=== PATIENT | male | born 1930 | race Caucasian/White ===

== ENCOUNTER 2016-09-07 08:43 | Emergency (ER) | payer MEDICARE ==
[2016-09-07] MEDS ORDERED: Meclizine TAB* 12.5 MG PO ONE (09:29)
[2016-09-07] MEDS ORDERED: NS 0.9% 1000 ML* 1,000 ML IV SCH (09:30)
[2016-09-07 09:48] LABS: Hematocrit 42 % (42-52); Hemoglobin 14.2 g/dl (14.0-18.0); Mean Corpuscular HGB Conc 34 g/dl (31-36); Mean Corpuscular Hemoglobin 31 pg (27-31); Mean Corpuscular Volume 93 fL (80-94); Mean Platelet Volume 7 um3 (7.4-10.4); Red Blood Count 4.51 10^6/ul (4.0-5.4); Red Cell Distribution Width 13 % (10.5-15); White Blood Count 5.8 10^3/ul (3.5-10.8)
[2016-09-07 09:49] LABS: Add Diff/Slide Review? Slide Review Added; Comments Flag Yes
[2016-09-07 10:01] LABS: ALT 17 U/L (7-52); AST 20 U/L (13-39); Albumin 4.2 g/dL (3.2-5.2); Alkaline Phosphatase 72 U/L (34-104); Anion Gap 5 mmol/L (2-11); BUN/Creatinine Ratio 23.2 (8-20); Blood Urea Nitrogen 29 mg/dL (6-24); C Reactive Protein < 1.00 mg/L (< 5.00); CO2 Carbon Dioxide 26 mmol/L (22-32); Calcium 9.3 mg/dL (8.6-10.3); Chloride 100 mmol/L (101-111); Creatine Kinase 70 U/L (10-223); EGFR African American 70.8 (>60); Globulin 2.5 g/dL (2-4); Glucose 90 mg/dL (70-100); Potassium 4.4 mmol/L (3.5-5.0); Sodium 131 mmol/L (133-145); Total Protein 6.7 g/dL (6.4-8.9)
--- NOTE | 2016-09-07 10:09 | RAD ---
HISTORY: Dizziness, headache COMPARISONS: May 10, 2015 TECHNIQUE: Multiple contiguous axial CT scans were obtained of the head without intravenous contrast. FINDINGS: HEMORRHAGE/INFARCT: There is no hemorrhage or acute infarct. MASSES/SHIFT: There is no mass or shift. EXTRA-AXIAL SPACES: There are no extra-axial fluid collections. SULCI AND VENTRICLES: The sulci and ventricles are normal in size and position for the patient's stated age. CEREBRUM: There are no focal parenchymal abnormalities. BRAINSTEM: There are no focal parenchymal abnormalities. CEREBELLUM: There is a stable small focus of high attenuation within the right cerebellum, unchanged from previous examinations consistent with previous history of cavernoma. VESSELS: The vessels are grossly normal. PARANASAL SINUSES: The paranasal sinuses are clear. ORBITS: The orbits are unremarkable. BONES AND SOFT TISSUE: No bone or soft tissue abnormalities are noted. OTHER: None IMPRESSION: NO ACUTE INTRACRANIAL PATHOLOGY. STABLE RIGHT CEREBELLAR CAVERNOMA
--- NOTE | 2016-09-07 10:11 | RAD ---
INDICATION: Dizziness. COMPARISON: Comparison is made with prior chest x-ray study from July 15, 2016. TECHNIQUE: An AP view of the chest was obtained. FINDINGS: The heart is within normal limits in size. Mediastinal and hilar contours appear within normal limits. The lungs are clear. No pleural effusion is present. IMPRESSION: NO EVIDENCE FOR ACTIVE CARDIOPULMONARY DISEASE.
[2016-09-07 10:24] LABS: TSH (Thyroid Stimulating Horm) 1.11 mcIU/mL (0.34-5.60)
[2016-09-07 12:04] LABS: Urine Bilirubin Negative (Negative); Urine Glucose Negative (Negative); Urine Nitrite Negative (Negative)
--- NOTE | 2016-09-07 12:50 | ED ---
Zeyad Gonzalez Claudia, scribed for Lm Dove MD on 09/07/16 at 0925 . Dizziness - HPI Summary HPI Summary: 86 year old male presents to the ED with dizziness. Pt describes the dizziness as lightheaded and denies it as room spinning. Pt notes the room is stable he just feels unstable. Pt notes the Sx aggravated when he moves his head. Pt states similar Sx to "small cerebral leak" about 3 years ago in which he had no neurological deficits. Pt notes the dizziness has been going on intermittently for about a week but it worsened today and became more constant so he decided to come to ED. Pt denies any BORGES but notes that when he tries to walk he is off- balance and he walks daily. Pt also denies any arm/leg weakness. Pt denies CP, SOB, abd pain but does admit to nasal discharge for the past week. He notes thwt his PCP gave him Rx for meclizine and he has been taking it at night but did not take a dose last night. - History Of Current Complaint Chief Complaint: EDDizziness Stated Complaint: DIZZY , HIGH BLOOD PRESSURE Time Seen by Provider: 09/07/16 09:10 Hx Obtained From: Patient Timing: Intermittent Episode Lasting - INTERMITTENT EPISODE GRADUAL ONSET 1 WEEK AGO Character: Lightheaded Associated Signs And Symptoms: Negative: Chest Pain, SOB - Allergies/Home Medications Allergies/Adverse Reactions: Allergies Allergy/AdvReac Type Severity Reaction Status Date / Time No Known Allergies Allergy Verified 10/28/15 07:44 PMH/Surg Hx/FS Hx/Imm Hx Previously Healthy: Yes Endocrine/Hematology History: Reports: Hx Thyroid Disease - HYPOTHYROIDISM ON MEDS Denies: Hx Anticoagulant Therapy, Hx Diabetes Cardiovascular History: Reports: Hx Hypercholesterolemia - HLD, Hx Hypertension - managed w/ meds, Other Cardiovascular Problems/Disorders - RIGHT CEREBELLA HEMORRHAGE Denies: Hx Congestive Heart Failure, Hx Pacemaker/ICD Respiratory History: Reports: Other Respiratory Problems/Disorders - PHLEGM IN BACK OF THROAT WHILE LAYING FLAT Denies: Hx Asthma, Hx Chronic Obstructive Pulmonary Disease (COPD) GI History: Reports: Other GI Disorders - CONSTIPATION R/T PAIN MEDS History: Reports: Hx Renal Disease - left kidney removed, Other Problems/ Disorders - PROSTATE CANCER Sensory History: Reports: Hx Contacts or Glasses - READING, Hx Glaucoma - BORERLINE FOLLOWED BY [facility] JOVITA JOHNSTON Denies: Hx Hearing Aid Opthamlomology History: Reports: Hx Contacts or Glasses - READING, Hx Glaucoma - BORERLINE FOLLOWED BY [facility] JOV[facility] JOHNSTON Neurological History: Reports: Hx Transient Ischemic Attacks (TIA), Other Neuro Impairments/Disorders - OCCASIONAL DIZZINESS, MAYBE ONCE A MONTH Denies: Hx Dementia, Hx Seizures Psychiatric History: Reports: Hx Anxiety - RECENT Denies: Hx Panic Disorder, Hx Substance Abuse - Cancer History Cancer Type, Location and Year: renal carcinoma 2012, prostate CA, thyroid CA Hx Chemotherapy: No Hx Radiation Therapy: Yes - Surgical History Surgery Procedure, Year, and Place: TONSILLECTOMY- A CHILD-TESTICLE DRAINED . RIGHT HERNIA REPAIR A CHILD. [id number]. 1998- THYROIDECTOMY @ [facility] [place] BY DR VELAZQUEZ. 2000-ROTATOR CUFF, RIGHT SHOULDER-DR DAVIS -[facility] [place]. 2008-LEFT NEPHRECTOMY-[facility]. 2012-COLONOSCOPY Hx Anesthesia Reactions: No - Immunization History Date of Tetanus Vaccine: 2002 Date of Influenza Vaccine: 2012 Infectious Disease History: Denies: Hx Hepatitis, Hx Human Immunodeficiency Virus (HIV), Traveled Outside the [place] in Last 30 Days - Family History Known Family History: Positive: Cardiac Disease, Hypertension - Social History Occupation: Retired Lives: With Family Alcohol Use: Occasionally Alcohol Amount: cocktail at HS Substance Use Type: Reports: None Hx Tobacco Use: No Smoking Status (MU): Former Smoker Type: Cigarettes Amount Used/How Often: 1 PPD FOR 20 YEARS Have You Smoked in the Last Year: No Review of Systems Constitutional: Negative Eyes: Negative Positive: Nasal Discharge. Negative: Ear Ache Cardiovascular: Negative Negative: Chest Pain Respiratory: Negative Negative: Shortness Of Breath Gastrointestinal: Negative Genitourinary: Negative Musculoskeletal: Negative Skin: Negative Neurological: Other - lightheadedness Negative: Headache Psychological: Normal All Other Systems Reviewed And Are Negative: Yes Physical Exam Triage Information Reviewed: Yes Vital Signs On Initial Exam: Initial Vitals Temp Pulse Resp BP Pulse Ox 97.3 F 64 20 173/73 95 09/07/16 08:45 09/07/16 08:45 09/07/16 08:45 09/07/16 08:45 09/07/16 08:45 Vital Signs Reviewed: Yes Appearance: Positive: Well-Appearing, No Pain Distress Skin: Positive: Warm, Skin Color Reflects Adequate Perfusion, Dry Head/Face: Positive: Normal Head/Face Inspection Eyes: Positive: EOMI, KAILYN ENT: Positive: Normal ENT inspection Neck: Positive: Supple, Nontender Respiratory/Lung Sounds: Positive: Clear to Auscultation, Breath Sounds Present Cardiovascular: Positive: RRR Abdomen Description: Positive: Nontender, Soft Musculoskeletal: Positive: Normal, Strength/ROM Intact Neurological: Positive: Normal, Sensory/Motor Intact, Alert, Oriented to Person Place, Time Psychiatric: Positive: Affect/Mood Appropriate - [place] Coma Scale Coma Scale Total: 15 Diagnostics - Vital Signs Vital Signs Temp Pulse Resp BP Pulse Ox 09/07/16 09:14 57 14 99 09/07/16 09:13 151/61 09/07/16 09:06 18 09/07/16 09:02 98.5 F 56 18 155/60 100 09/07/16 08:45 97.3 F 64 20 173/73 95 - Laboratory Lab Results: Lab Results 09/07/16 09/07/16 09/07/16 Range/Units 09:40 09:40 09:40 WBC 5.8 (3.5-10.8) 10^3/ul RBC 4.51 (4.0-5.4) 10^6/ul Hgb 14.2 (14.0-18.0) g/dl Hct 42 (42-52) % MCV 93 (80-94) fL MCH 31 (27-31) pg MCHC 34 (31-36) g/dl RDW 13 (10.5-15) % Plt Count 218 (150-450) 10^3/ul MPV 7 L (7.4-10.4) um3 Neut % (Auto) 65.8 (38-83) % Lymph % (Auto) 20.1 L (25-47) % [place] % (Auto) 12.0 H (1-9) % Eos % (Auto) 1.2 (0-6) % Baso % (Auto) 0.9 (0-2) % Absolute Neuts (auto) 3.8 (1.5-7.7) 10^3/ul Absolute Lymphs (auto) 1.2 (1.0-4.8) 10^3/ul Absolute Monos (auto) 0.7 (0-0.8) 10^3/ul Absolute Eos (auto) 0.1 (0-0.6) 10^3/ul Absolute Basos (auto) 0.1 (0-0.2) 10^3/ul Absolute Nucleated RBC 0 10^3/ul Nucleated RBC % 0 INR (Anticoag Therapy) 0.86 L (0.89-1.11) APTT 31.3 (26.0-36.3) seconds Sodium 131 L (133-145) mmol/L Potassium 4.4 (3.5-5.0) mmol/L Chloride 100 L (101-111) mmol/L Carbon Dioxide 26 (22-32) mmol/L Anion Gap 5 (2-11) mmol/L BUN 29 H (6-24) mg/dL Creatinine 1.25 H (0.67-1.17) mg/dL Est GFR ( Amer) 70.8 (>60) Est GFR (Non-Af Amer) 55.0 (>60) BUN/Creatinine Ratio 23.2 H (8-20) Glucose 90 (70-100) mg/dL Lactic Acid (0.5-2.0) mmol/L Calcium 9.3 (8.6-10.3) mg/dL Magnesium 2.0 (1.9-2.7) mg/dL Total Bilirubin 0.60 (0.2-1.0) mg/dL AST 20 (13-39) U/L ALT 17 (7-52) U/L Alkaline Phosphatase 72 (34-104) U/L Total Creatine Kinase 70 (10-223) U/L CK-MB (CK-2) 2.5 (0.6-6.3) ng/mL Troponin I 0.00 (<0.04) ng/mL C-Reactive Protein < 1.00 (< 5.00) mg/L B-Natriuretic Peptide ( - 100) pg/mL Total Protein 6.7 (6.4-8.9) g/dL Albumin 4.2 (3.2-5.2) g/dL Globulin 2.5 (2-4) g/dL Albumin/Globulin Ratio 1.7 (1-3) TSH 1.11 (0.34-5.60) mcIU/mL Urine Color Urine Appearance Urine pH (5-9) Ur Specific [place] (1.010-1.030) Urine Protein (Negative) Urine Ketones (Negative) Urine Blood (Negative) Urine Nitrate (Negative) Urine Bilirubin (Negative) Urine Urobilinogen (Negative) Ur Leukocyte Esterase (Negative) Urine Glucose (Negative) 09/07/16 09/07/16 09/07/16 Range/Units 09:40 09:40 11:55 WBC (3.5-10.8) 10^3/ul RBC (4.0-5.4) 10^6/ul Hgb (14.0-18.0) g/dl Hct (42-52) % MCV (80-94) fL MCH (27-31) pg MCHC (31-36) g/dl RDW (10.5-15) % Plt Count (150-450) 10^3/ul MPV (7.4-10.4) um3 Neut % (Auto) (38-83) % Lymph % (Auto) (25-47) % [place] % (Auto) (1-9) % Eos % (Auto) (0-6) % Baso % (Auto) (0-2) % Absolute Neuts (auto) (1.5-7.7) 10^3/ul Absolute Lymphs (auto) (1.0-4.8) 10^3/ul Absolute Monos (auto) (0-0.8) 10^3/ul Absolute Eos (auto) (0-0.6) 10^3/ul Absolute Basos (auto) (0-0.2) 10^3/ul Absolute Nucleated RBC 10^3/ul Nucleated RBC % INR (Anticoag Therapy) (0.89-1.11) APTT (26.0-36.3) seconds Sodium (133-145) mmol/L Potassium (3.5-5.0) mmol/L Chloride (101-111) mmol/L Carbon Dioxide (22-32) mmol/L Anion Gap (2-11) mmol/L BUN (6-24) mg/dL Creatinine (0.67-1.17) mg/dL Est GFR ( Amer) (>60) Est GFR (Non-Af Amer) (>60) BUN/Creatinine Ratio (8-20) Glucose (70-100) mg/dL Lactic Acid 1.1 (0.5-2.0) mmol/L Calcium (8.6-10.3) mg/dL Magnesium (1.9-2.7) mg/dL Total Bilirubin (0.2-1.0) mg/dL AST (13-39) U/L ALT (7-52) U/L Alkaline Phosphatase (34-104) U/L Total Creatine Kinase (10-223) U/L CK-MB (CK-2) (0.6-6.3) ng/mL Troponin I (<0.04) ng/mL C-Reactive Protein (< 5.00) mg/L B-Natriuretic Peptide 35 ( - 100) pg/mL Total Protein (6.4-8.9) g/dL Albumin (3.2-5.2) g/dL Globulin (2-4) g/dL Albumin/Globulin Ratio (1-3) TSH (0.34-5.60) mcIU/mL Urine Color Yellow Urine Appearance Clear Urine pH 5.0 (5-9) Ur Specific [place] 1.010 (1.010-1.030) Urine Protein Negative (Negative) Urine Ketones Negative (Negative) Urine Blood Negative (Negative) Urine Nitrate Negative (Negative) Urine Bilirubin Negative (Negative) Urine Urobilinogen Negative (Negative) Ur Leukocyte Esterase Negative (Negative) Urine Glucose Negative (Negative) Result Diagrams: 09/07/16 09:40 09/07/16 09:40 Lab Statement: Any lab studies that have been ordered have been reviewed, and results considered in the medical decision making process. - Radiology CXR Xray Interpretation: No Acute Changes - NO EVIDENCE FOR ACTIVE CARDIOPULMONARY DISEASE Radiology Interpretation Completed By: Radiologist - CT BRAIN CT CT Interpretation: No Acute Changes - NO ACUTE INTRACRANIAL PATHOLOGY STABLE RIGHT CEREBELLAR CAVERNOMA CT Interpretation Completed By: Radiologist - EKG 8:51 Cardiac Rate: Bradycardia EKG Rhythm: Sinus Bradycardia - 55 BEATS/MIN ST Segment: Normal Ectopy: None Re-Evaluation - Re-Evaluation 1 Re-Evaluation Time: 10:39 Comment: DISCUSSED RESULTS OF CT BRAIN AND CXR WITH PT AND DAUGHTER. THEY ARE AGREEABLE WITH THE PLAN DISCUSSED. Dizzy Course/Dx - Course Course Of Treatment: NO CRITICAL CARE TIME. Assessment/Plan: IMPROVED IN ED. AMBULATED WELL IN ED. FEELS SAFE GOING HOME. DISCHARGE HOME STABLE. - Diagnoses Provider Diagnoses: Vertigo Discharge - Discharge Plan Condition: Stable Disposition: HOME Prescriptions: Meclizine HCl [Meclizine 25] 25 mg PO Q6HR PRN #15 tab PRN Reason: Dizziness Patient Education Materials: Vertigo (ED) Referrals: Adele Gr MD [Primary Care Provider] - Additional Instructions: FOLLOW UP WITH YOUR DOCTOR. TAKE MECLIZINE 25MG EVERY 6 HOURS NEEDED FOR VERTIGO. RETURN TO THE EMERGENCY DEPARTMENT FOR ANY WORSENING OF YOUR CONDITION; WEAKNESS , NUMBNESS, YOU FEEL ILL OR QUESTIONS OR CONCERNS. The documentation as recorded by the Zeyad cannon Claudia accurately reflects the service I personally performed and the decisions made by me, Lm Dove MD.
[2016-09-07 13:06] VITALS: BP 178/70
== END 2016-09-07 13:05 | disposition home or self-care (01) ==
LOC: ED 08:43
DX: R42 Dizziness and giddiness (principal)
CPT/HCPCS: 36415; 70450; 71010; 80053; 81003; 82550; 82553; 83605; 83735; 83880; 84443; 84484; 85025; 85610; 85730; 86140; 93005; 99283; A9270-GY

== ENCOUNTER 2017-08-10 06:15 | Day surgery (SDC) | payer MEDICARE ==
--- NOTE | 2017-08-09 23:02 | HP ---
CC: Dr. Adele Gr * HISTORY AND PHYSICAL: DATE OF PLANNED ADMISSION AND SURGERY: 08/10/17 HISTORY OF PRESENT ILLNESS: Please refer to the detailed history and physical by Dr. Adele Gr dated 07/27/17. Mr. Nagel is an 87-year-old white male, who is admitted for cystoscopy and multiple bladder biopsies. Mr. Nagel was diagnosed with prostate carcinoma in 1995 and was treated with full course of external beam radiation therapy completed in August 1996. He has done well. His PSA has slowly increased, but has been stable around 3.7. He had some symptoms of radiation cystitis and had hyperemic bladder lesions noted on cystoscopy. In September 2012, he underwent cystoscopy and excisional biopsies of bladder lesions and they were benign consistent with radiation cystitis. He was recently noted to have microscopic hematuria. Cystoscopy 2 months ago showed hyperemic flat lesions in the left bladder wall possibly indicating carcinoma in situ. The patient is admitted for cystoscopy and biopsies of the above lesions. Past history is relevant for left renal cell carcinoma for which he underwent radical left nephrectomy in December 2008. He has done well and has had no recurrent disease. His physical examination is within normal and rectal exam showed a nonindurated and flat prostate with minimal enlargement. The rest of the medical history is in Dr. Gr's note. IMPRESSION: 1. History of prostate carcinoma, status post external beam radiation therapy. 2. History of renal cell carcinoma, status post left nephrectomy. 3. Suspicious bladder lesions noted on recent cystoscopy. PLAN: For cystoscopy and excisional biopsies. I have discussed the above plans with the patient and his family and all of their questions were answered. [id number]/[facility] #: [id number] [facility] HOSPITALElma
[~2017-08-10 06:15] MED LIST: Buffered Lidocaine 0.9% SYRIN* 5 ML/SYR SYRINGE INTRADERM ONE; DiMENhydriNATE IV* 50 MG/ML VIAL IV PUSH PRN; Famotidine IV* 10 MG/ML 2 ML (20 mg) IV ONE; Morphine INJ* 2 MG/ML 1 ML CARPUJECT IV PRN; Naloxone* 0.4 MG/ML 1 ML VIAL IV PRN; PROCHLORPERAZINE INJ 5 MG/ML 2 ML VIAL IV PRN; cefTRIAXone 1000 MG SYRINGE IVPB ONCE IVPB ONE; fentaNYL* 50 MCG/ML 2 ML VIAL (100 MCG VIAL) IV PRN; oxyCODONE/Acetamin 5/325 MG* TAB PO PRN
[2017-08-10] MEDS ORDERED: Buffered Lidocaine 0.9% SYRIN* 5 ML/SYR SYRINGE ONE (06:18)
[2017-08-10] MEDS ORDERED: Famotidine IV* 10 MG/ML 2 ML (20 mg) ONE (06:18)
[2017-08-10] MEDS ORDERED: KETAMINE HCL* 50 MG/ML 10 ML VIAL ONE (07:20)
[2017-08-10] MEDS ORDERED: Midazolam* 1 MG/ML 5 ML VIAL (5 MG) ONE (07:20)
[2017-08-10] MEDS ORDERED: fentaNYL* 50 MCG/ML 2 ML VIAL (100 MCG VIAL) ONE (07:20)
[2017-08-10] MEDS ORDERED: Lidocaine 2% PF * 5 ML VIAL ONE (08:02)
[2017-08-10] MEDS ORDERED: Dexamethasone IV* 4 MG/ML 1 ML (4 MG) ONE (08:02)
[2017-08-10] MEDS ORDERED: Propofol* 10 MG/ML 20 ML BTL IV PUSH ONE (08:02)
[2017-08-10] MEDS ORDERED: Ondansetron INJ* 2 MG/ML VIAL ONE (08:02)
[2017-08-10 08:49] VITALS: BP 161/76
--- NOTE | 2017-08-11 07:08 | OP ---
CC: Adele Gr MD * DATE OF OPERATION: 08/10/17 - SDS DATE OF : 34 SURGEON: Gucci Tavarez MD ANESTHESIOLOGIST: Dr. Castaneda. ANESTHESIA: IV sedation with MAC. PRE-OP DIAGNOSES: 1. Suspicious bladder lesions. 2. Pending pathology. POST-OP DIAGNOSIS: Pending pathology. OPERATIVE PROCEDURE: 1. Cystoscopy. 2. Excisional biopsies and fulguration of bladder lesions. INDICATIONS FOR PROCEDURE: Mr. Nagel is an 87-year-old white male who received a full course of external beam radiation therapy for carcinoma of the prostate in 1996. He has done well and his PSA has been stable in the vicinity of 3.7. He was recently evaluated because of microscopic hematuria. Renal ultrasound showed a normal right kidney and surgical absence of the left kidney. No other abnormalities were noted. Cystoscopy showed several hyperemic areas in the bladder with the differential diagnosis of carcinoma in situ or radiation cystitis lesions. Because of the above history and findings, cystoscopy was recommended. PATHOLOGY AT CYSTOSCOPY: The penile and bulbar urethrae looked normal. The prostatic urethra measured 2 cm in length and there was minimal obstruction by prostate lobes. Examination of the bladder showed normal ureteral orifices. There was clear efflux coming from the right orifice and no efflux coming from the left. There were several hyperemic lesions noted in the base of the bladder. They looked less suspicious than on the office cystoscopy, and seemed more consistent with radiation cystitis rather than carcinoma in situ. The rest of the bladder wall showed some pallor of the mucosa but no papillary lesions. There were moderate trabeculations. No calculi or diverticula were noted. DESCRIPTION OF PROCEDURE: With the patient in the dorsal lithotomy position under intravenous sedation and anesthesia monitoring, cystoscopy was performed. The bladder was inspected and the above findings were noted. Using the rigid biopsy forceps, two biopsies were obtained from characteristic lesions. The sites of the biopsies were then fulgurated with the Bugbee electrode. There was very good hemostasis. The bladder was then emptied and the cystoscope was removed. The patient tolerated the procedure well and left the operating room in good condition. [id number]/[facility] #: [id number] MTDD
== END 2017-08-10 09:34 | disposition home or self-care (01) ==
LOC: OR 06:15
PROVIDERS: ATTEND Urology
DX: C67.9 Malignant neoplasm of bladder, unspecified (principal); N32.9 Bladder disorder, unspecified; Z85.46 Personal history of malignant neoplasm of prostate; Z85.528 Personal history of other malignant neoplasm of kidney; Z92.3 Personal history of irradiation
CPT/HCPCS: 88305; 88341; 88342; J0696; J1100; J2250; J2405; J2704; J3010

== ENCOUNTER 2017-09-07 05:58 | Day surgery (SDC) | payer MEDICARE ==
--- NOTE | 2017-08-29 09:34 | HP ---
CC: Dr. Adele Gr * HISTORY AND PHYSICAL: DATE OF PLANNED ADMISSION AND SURGERY: 09/07/17 HISTORY OF PRESENT ILLNESS: Mr. 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 Mr. Nagel was diagnosed with prostate carcinoma in 1995 and was treated with a full course of external beam radiation therapy completed in August 1996. The treatment was well tolerated and he did well and his PSA has been stable around 3.7. The patient had some symptoms of radiation cystitis with frequency and urgency and was noted to have microscopic hematuria. He had a cystoscopy and multiple biopsies of bladder lesions in September 2012 and the biopsies were all benign showing changes consistent with radiation cystitis. Because of microhematuria he had a cystoscopy in the office 3 months ago, showing small areas of bladder wall hyperemia, but there were no papillary lesions seen. He underwent cystoscopy under anesthesia on 08/10/17. The areas of bladder wall hyperemia that were noted at this previous cystoscopy were mostly resolved. He still had some changes of radiation cystitis with a slight hyperemia in the base of the bladder. There were no papillary lesions and no suspicious lesions noted. Two punch biopsies were obtained from the base of the bladder. The pathology on the bladder biopsy showed an invasive poorly differentiated carcinoma favoring urothelial in origin and the tumor was infiltrating into the lamina propria. The biopsy was not deep enough to include muscle. For further workup, he had a non contrast CT of the chest, abdomen, and pelvis. The study showed no evidence of metastatic disease, absent left kidney consistent with a history of left nephrectomy. Because of the above history, the patient is admitted for restaging, and to obtain deeper biopsies of the bladder wall to check for muscle invasion, and for Rt retrograde pyelography to evaluate his upper tracts. The patient was diagnosed with renal carcinoma of his left kidney in 2008, and underwent radical left nephrectomy in December 2008. He has had no recurrent disease. PAST MEDICAL HISTORY AND SYSTEM REVIEW: He is hypertensive, maintained on losartan 50 mg daily and on amlodipine 5 mg daily. He takes lorazepam 0.5 mg daily as needed for vertigo. He has hypothyroidism, on levothyroxine 100 mcg daily. He is on 1 baby aspirin because of history of TIA. He has hyperlipidemia, on atorvastatin 10 mg daily. He denies any cardiac disease. He is fairly active and walks about 1 mile every day. He denies any chest pain or shortness of breath. PHYSICAL EXAMINATION GENERAL: He is pleasant and healthy looking for his age. VITAL SIGNS: Blood pressure 150/70, pulse of 70. LUNGS: Clear. HEART: Regular rate and rhythm with no murmurs. ABDOMEN: No masses, no tenderness, and no CVA tenderness. EXTERNAL GENITALIA: Normal. He is circumcised. No penile lesions. Normal testes and no hernias. RECTAL EXAM: Showed a non-enlarged and non-indurated prostate. EXTREMITIES: Show no edema. 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 Status post radiation therapy for carcinoma of the prostate. Status post radical left nephrectomy for renal cell carcinoma without recurrent disease. PLAN: For cystoscopy, bladder biopsies, right retrograde pyelography. I discussed the above plans with the patient. All his questions were answered. [id number]/[facility] #: [id number] [facility]
[~2017-09-07 05:58] MED LIST changes: -DiMENhydriNATE IV* 50 MG/ML VIAL IV PUSH PRN; -Famotidine IV* 10 MG/ML 2 ML (20 mg) IV ONE; -Morphine INJ* 2 MG/ML 1 ML CARPUJECT IV PRN; -Naloxone* 0.4 MG/ML 1 ML VIAL IV PRN; -PROCHLORPERAZINE INJ 5 MG/ML 2 ML VIAL IV PRN; -cefTRIAXone 1000 MG SYRINGE IVPB ONCE IVPB ONE; -fentaNYL* 50 MCG/ML 2 ML VIAL (100 MCG VIAL) IV PRN; -oxyCODONE/Acetamin 5/325 MG* TAB PO PRN
[2017-09-07] MEDS ORDERED: Sodium Citrate/Citric Acid* 15 ML UDC PO ONE (06:00)
[2017-09-07] MEDS ORDERED: cefTRIAXone(*) 2 GM ADDV.VIAL IVPB ONE (06:08)
[2017-09-07] MEDS ORDERED: Buffered Lidocaine 0.9% SYRIN* 5 ML/SYR SYRINGE ONE (06:08)
[2017-09-07] MEDS ORDERED: Sodium Citrate/Citric Acid* 15 ML UDC ONE (06:08)
[2017-09-07] MEDS ORDERED: Iohexol 180 (CONTRAST) 10 ML SDV IV ONE (07:03)
[2017-09-07] MEDS ORDERED: fentaNYL* 50 MCG/ML 2 ML VIAL (100 MCG VIAL) ONE (07:31)
[2017-09-07] MEDS ORDERED: Propofol* 10 MG/ML 20 ML BTL IV PUSH ONE (07:51)
[2017-09-07] MEDS ORDERED: Lidocaine 2% PF * 5 ML VIAL ONE (07:51)
[2017-09-07] MEDS ORDERED: Ondansetron INJ* 2 MG/ML VIAL IV PRN (08:09)
[2017-09-07] MEDS ORDERED: fentaNYL* 50 MCG/ML 2 ML VIAL (100 MCG VIAL) IV PRN (08:09)
[2017-09-07] MEDS ORDERED: Naloxone* 0.4 MG/ML 1 ML VIAL IV PRN (08:09)
--- NOTE | 2017-09-07 09:03 | RAD ---
INDICATION: Bladder lesion, carcinoma COMPARISONS: CT dated August 23, 2017 TECHNIQUE: Fluoroscopy was provided for a retrograde pyelogram. Total fluoroscopy time is: 14 seconds FINDINGS: Spot images demonstrate contrast within the renal collecting systems bilaterally. There is no appreciable ureteral filling defect image. IMPRESSION: FLUOROSCOPY WAS PROVIDED FOR A RETROGRADE PYELOGRAM CPT II Codes: G9500
[2017-09-07] MEDS ORDERED: Losartan TAB* 25 MG PO ONE (10:00)
[2017-09-07] MEDS ORDERED: Labetalol IV* 5 MG/ML 20 ML VIAL ONE (10:36)
[2017-09-07 11:34] VITALS: BP 158/70
--- NOTE | 2017-09-07 11:43 | OP ---
CC: Dr. Adele Gr * DATE OF OPERATION: 09/07/17 - [facility] DATE OF : 34 SURGEON: Gucci Tavarez MD ANESTHESIOLOGIST: Jair Armando DO ANESTHESIA: General. PRE-OP DIAGNOSIS: Bladder tumors. POST-OP DIAGNOSIS: Pending pathology. OPERATIVE PROCEDURE: 1. Cystoscopy. 2. Bilateral retrograde pyelographies. 3. Multiple bladder biopsies and fulguration. INDICATIONS: Mr. Nagel is an 87-year-old white male who had a left nephrectomy for renal cell carcinoma, pelvic radiation therapy for prostate cancer and who recently underwent cystoscopy and bladder biopsies because of slight hyperemia noted in the bladder wall. 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 The biopsies were not deep enough to include muscle. Noncontrast CT of the chest, abdomen, and pelvis was negative showing only thickening of the bladder wall and absent left kidney. Urine cytologies were negative. Because of the above history, the patient is brought in for the above procedures. PATHOLOGY AT CYSTOSCOPY: The penile and bulbar urethrae looked normal. There was an element of stricture in the area of the membranous urethra, most likely from the radiation therapy. The prostatic urethra measured 2.5 cm in length and was only [id number] obstruction by prostate enlargement. Examination of the bladder showed diffuse pallor of the bladder wall consistent with history of pelvic radiation therapy. There were a few flat hyperemic areas , which seemed to be radiation effects. There was scarring from the previous biopsies. There were no papillary lesions noted and there were no areas that had the appearance of bladder tumors. The ureteral orifices looked normal. Clear efflux noted from the Rt orifice, no efflux from the Left. Right retrograde pyelography showed normal ureter and collecting system without dilatation or abnormal filling defects. A left retrograde pyelography was also normal showing the ureter all the way to its proximal end. The finding consistent with a left nephrectomy. DESCRIPTION OF PROCEDURE: After successful general anesthesia, the patient was placed in the lithotomy position and was prepped and draped for a cystoscopy. Cystoscopy was then performed. The bladder was carefully inspected and above findings were noted. A size 4-St Helen[place] open ended catheter was introduced carefully into the right orifice and retrograde pyelography was performed with good filling and visualization of the whole ureter and collecting system. No abnormalities were noted. Following the removal of the catheter, there was prompt drainage of contrast from the kidney from the ureter. Left retrograde pyelography was then performed demonstrating the ureter. No abnormal filling defects were noted. The biopsy forceps was then introduced inside the bladder. Multiple biopsies were obtained from the more hyperemic areas of the bladder wall mostly in the base and mid bladder wall. The biopsies were also obtained adjacent to the scarring from his recent biopsies. The biopsies were deep and muscle fibers were included. A total of 6 or 7 such punch biopsies were obtained and sent for pathology. The sites of the biopsies were thoroughly fulgurated with coagulation current achieving good hemostasis. There was no bladder wall perforation. After a final inspection which showed good efflux from the right orifice, good hemostasis, the cystoscope was removed and a size 18-St Helenian Shen catheter was passed inside the bladder and balloon inflated with 10 cc of water. The patient tolerated the procedure well and left the operating room in good condition. [id number]/CPS #: [id number] MTDD
== END 2017-09-07 11:50 | disposition home or self-care (01) ==
LOC: OR 05:58
PROVIDERS: ATTEND Urology
DX: D09.0 Carcinoma in situ of bladder (principal); Z85.46 Personal history of malignant neoplasm of prostate; Z85.51 Personal history of malignant neoplasm of bladder; Z85.528 Personal history of other malignant neoplasm of kidney; Z90.5 Acquired absence of kidney; I10 Essential (primary) hypertension; E03.9 Hypothyroidism, unspecified
CPT/HCPCS: 74420; 88305; A9270-GY; J0696; J2704; J3010

== ENCOUNTER 2017-12-26 06:16 | Day surgery (SDC) | payer MEDICARE ==
--- NOTE | 2017-12-23 11:46 | HP ---
CC: Dr. Adele Gr's office HISTORY AND PHYSICAL: DATE OF PLANNED ADMISSION AND SURGERY: 12/26/17 HISTORY OF PRESENT ILLNESS: Mr. Nagel is an 87-year-old white male who is admitted with history of high grade bladder tumor, suspicious bladder lesions on recent cystoscopy for cystoscopy and transurethral resection of bladder lesions. Mr. 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 He was treated with a full course of external beam radiation therapy completed in August 1996. He has done well and his PSA has been stable at about 3.2 over the last 4 years. In 2008, he was diagnosed with left renal cell carcinoma and underwent a radical left nephrectomy at [facility] in December 2008. He has done well and has had no evidence of recurrent disease. His renal function has been stable with the creatinine of 1.2. In July 2017, he was worked up because of hematuria and was diagnosed with a high grade bladder tumor. 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 The patient was treated with a course of intravesical BCG, completed 2 months ago. Recent cystoscopy showed significant degree of hyperemia of the base of the bladder. Urine cytology was negative. Although the lesion might represent BCG reaction, the patient is admitted for cystoscopy and multiple biopsies and transurethral resection for restaging purposes. 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 PAST MEDICAL HISTORY AND SYSTEM REVIEW: He is rather healthy considering his age. He is hypertensive maintained on losartan 50 mg daily and amlodipine 5 mg daily. He has history of vertigo and is on lorazepam 0.5 mg as needed daily. He has hypothyroidism, on levothyroxine 100 mcg daily. He is on one baby aspirin per day because of past history of TIA. He has history of hyperlipidemia and maintained on Lipitor 10 mg daily. He denies any cardiac disease or symptoms. He is fairly physically active and walks about one mile every day. PHYSICAL EXAMINATION GENERAL: Pleasant and healthy looking for his age. VITAL SIGNS: Blood pressure 138/80, pulse of 80. LUNGS: Clear. HEART: Regular and rhythmic. No murmurs. ABDOMEN: Soft. No masses. No tenderness and no CVA tenderness. EXTERNAL GENITALIA: Normal. He is circumcised. No penile lesions. Normal testes and no inguinal hernias. EXTREMITIES: Show no edema. RECTAL: Exam shows slightly enlarged, but nonsuspicious prostate. IMPRESSION: 1. History of high grade carcinoma in situ, status post BCG treatment with suspicious lesions on recent cystoscopy for transurethral resections. 2. History of prostate carcinoma, status post radiation therapy in 1996 with stable PSA and no clinical evidence of recurrent disease. 3. History of renal cell carcinoma, status post left radical nephrectomy in December 2008 without evidence of recurrent disease. PLAN: Cystoscopy, transurethral resection of bladder lesions. [id number]/[facility] #: [id number] [facility]
[~2017-12-26 06:16] MED LIST changes: +Dexamethasone TAB* 4 MG PO ONE; +DiMENhydriNATE IV* 50 MG/ML VIAL IV PUSH PRN; +Famotidine IV* 10 MG/ML 2 ML (20 mg) IV ONE; +Morphine INJ* 2 MG/ML 1 ML SYRINGE (TWO MG - NEW SYRINGE VERSION) IV PRN; +Naloxone* 0.4 MG/ML 1 ML VIAL IV PRN; +Ondansetron INJ* 2 MG/ML VIAL ONE; +PROCHLORPERAZINE INJ 5 MG/ML 2 ML VIAL IV PRN; +fentaNYL* 50 MCG/ML 2 ML VIAL (100 MCG VIAL) IV PRN; +oxyCODONE/Acetamin 5/325 MG* TAB PO PRN
[2017-12-26] MEDS ORDERED: Famotidine IV* 10 MG/ML 2 ML (20 mg) ONE (06:50)
[2017-12-26] MEDS ORDERED: Ondansetron ODT TAB* 4 MG ONE (06:51)
[2017-12-26] MEDS ORDERED: Dexamethasone TAB* 4 MG ONE (06:51)
[2017-12-26] MEDS ORDERED: cefTRIAXone(*) 2 GM ADDV.VIAL IVPB ONE (06:51)
[2017-12-26] MEDS ORDERED: fentaNYL* 50 MCG/ML 2 ML VIAL (100 MCG VIAL) ONE (07:12)
[2017-12-26] MEDS ORDERED: Midazolam* 1 MG/ML 2 ML VIAL (2 MG) ONE (07:12)
[2017-12-26] MEDS ORDERED: KETAMINE HCL* 50 MG/ML 10 ML VIAL ONE (07:12)
[2017-12-26] MEDS ORDERED: EPHEDrine (Pressors)* 50 MG/ML VIAL ONE (07:57)
[2017-12-26] MEDS ORDERED: Propofol* 10 MG/ML 20 ML BTL IV PUSH ONE (07:57)
[2017-12-26] MEDS ORDERED: Lidocaine 2% PF * 5 ML VIAL ONE (07:57)
[2017-12-26] MEDS ORDERED: Flumazenil* 0.1 MG/ML 5 ML MDV ONE (08:14)
[2017-12-26 09:32] VITALS: BP 156/68
--- NOTE | 2017-12-26 20:28 | OP ---
CC: Dr. Adele Gr * DATE OF OPERATION: 12/26/17 - [facility] DATE OF : 34 SURGEON: Gucci Tavarez MD ANESTHESIOLOGIST: Spenser Castaneda MD ANESTHESIA: General. PRE-OP DIAGNOSES: 1. Urethral stricture. 2. History of bladder tumors. 3. Status post left nephrectomy for renal cell carcinoma. 4. Status post radiation therapy for prostate carcinoma. POST-OP DIAGNOSES: 1. Stricture of membranous and bulbar urethra. 2. Bladder lesions. OPERATIVE PROCEDURE: 1. Cystoscopy. 2. Urethral dilation. 3. Multiple bladder biopsies. INDICATIONS: Mr. Nagel is an 87-year-old white male who had undergone radiation therapy for prostate carcinoma back in August of 1996. He had good result and his PSA has been stable at about 3.5. He had undergone a left radical nephrectomy for renal cell carcinoma in 2008. 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 He had developed a tight stricture of the membranous and the bulbar urethra and this had to be dilated in the office to avoid urinary retention. At his recent cystoscopy, hyperemic bladder lesions were noted. The patient brought in for the above procedure. PATHOLOGY AT CYSTOSCOPY: The penile urethra looked normal. There was a tight stricture extending into the proximal bulbar urethra and involving the membranous urethra. The prostatic urethra was rather open and nonobstructing. The bladder neck was open. Examination of the bladder showed severe hyperemic lesions in the base of the bladder. They looked like either recurrent flat bladder tumors or BCG reaction. No papillary lesions were seen. DESCRIPTION OF PROCEDURE: After successful general anesthesia, the patient was placed in the lithotomy position and was prepped and draped for cystoscopy. Cystoscopy was performed. The findings in the bulbar urethra were noted. The direct internal optic urethrotome was then introduced inside the bladder. A flexible-tip guidewire was then introduced through the scope and through the urethral stricture to identify the lumen of the urethra. The portion of the stricture in the bulbar urethra was gently incised at 12 o'clock. Incision was stopped at that level and the scope was then introduced under direct vision, guided with the guidewire and the membranous urethra was dilated. No incision was carried in the membranous urethra. The urethrotome was then removed and a 22-Citizen [place] cystoscope was then introduced under direct vision inside the bladder. The bladder was carefully inspected. The ureteral orifices were identified. Using the biopsy forceps, several biopsies were obtained from characteristic lesions inside the bladder. The sites of the biopsies were then fulgurated with the coagulation current. The ureteral orifices, especially the right one, were intact. A size 20-[place]izen [place] Shen catheter was then passed inside the bladder and the balloon inflated with 10 cc of water. The patient tolerated the procedure well and left the operating room in good condition. [id number]/[facility] #: [id number] [facility] DIVISIONEl[facility]
== END 2017-12-26 09:45 | disposition home or self-care (01) ==
LOC: OR 06:16
PROVIDERS: ATTEND Urology
DX: N32.89 Other specified disorders of bladder (principal); N35.9 Urethral stricture, unspecified; I10 Essential (primary) hypertension; Z85.51 Personal history of malignant neoplasm of bladder; Z85.46 Personal history of malignant neoplasm of prostate; Z85.528 Personal history of other malignant neoplasm of kidney; E03.9 Hypothyroidism, unspecified
CPT/HCPCS: 88305; A9270-GY; J0696; J2250; J2704; J3010; J8540

== ENCOUNTER 2019-07-01 13:00 | Emergency (ER) | payer MEDICARE ==
[2019-07-01 13:23] LABS: ABS Basophils 0.1 10^3/ul (0-0.2); ABS Eosinophils 0.1 10^3/ul (0-0.6); ABS Lymphocytes 1.3 10^3/ul (1.0-4.8); ABS Monocytes 0.7 10^3/ul (0-0.8); ABS Neutrophils 4.2 10^3/ul (1.5-7.7); Eosinophil % 2.2 %; Hematocrit 40 % (42-52); Hemoglobin 13.8 g/dL (14.0-18.0); Mean Corpuscular HGB Conc 35 g/dL (31-36); Mean Corpuscular Hemoglobin 33 pg (27-31); Mean Corpuscular Volume 95 fL (80-94); Mean Platelet Volume 7.5 fL (7.4-10.4); Platelet Count 221 10^3/uL (150-450); Red Blood Count 4.21 10^6 /uL (4.18-5.48); Red Cell Distribution Width 13 % (10-15); White Blood Count 6.3 10^3/uL (3.5-10.8)
[2019-07-01 13:39] LABS: Albumin/Globulin Ratio 1.7 (1-3); BUN/Creatinine Ratio 24.3 (8-20); Calcium 9.1 mg/dL (8.6-10.3); EGFR African American 56.1 (>60); EGFR Non-African American 46.4 (>60); Globulin 2.3 g/dL (2-4); Magnesium 2.1 mg/dL (1.9-2.7); Potassium 4.4 mmol/L (3.5-5.0); Total Bilirubin 0.4 mg/dL (0.2-1.0); Total Protein 6.3 g/dL (6.4-8.9)
[2019-07-01 13:41] LABS: Troponin I 0.01 ng/mL (<0.03)
[2019-07-01 14:58] LABS: TSH (Thyroid Stimulating Horm) 0.86 mcIU/mL (0.34-5.60)
[2019-07-01] MEDS ORDERED: NS 0.9% 1000 ML** 1,000 ML IV ONE (15:03)
--- NOTE | 2019-07-01 15:08 | ED ---
Dizziness - HPI Summary HPI Summary: This patient is an 89 year old male presenting to [facility] with a chief complaint of dizziness and weakness for approximately one month. He states over this time it has gotten worse. He states while walking today he was starting to stagger to the side while walking. He states he will normally get lightheaded and dizzy when he stands up but today it was different with the stagger while walking while up. He states he has been eating normally and everything else has been normal otherwise. He states no recent illness. - History Of Current Complaint Chief Complaint: EDDizziness Stated Complaint: WEAKNESS Time Seen by Provider: 07/01/19 14:53 Hx Obtained From: Patient Timing: Weeks Character: Lightheaded, Dizzy Associated Signs And Symptoms: Positive: Unsteady Gait - Allergies/Home Medications Allergies/Adverse Reactions: Allergies Allergy/AdvReac Type Severity Reaction Status Date / Time No Known Allergies Allergy Verified 07/01/19 13:06 PMH/Surg Hx/FS Hx/Imm Hx Endocrine/Hematology History: Reports: Hx Thyroid Disease - HYPOTHYROIDISM ON MEDS Denies: Hx Anticoagulant Therapy, Hx Diabetes Cardiovascular History: Reports: Hx Hypercholesterolemia - HLD, Hx Hypertension - managed w/ meds, Other Cardiovascular Problems/Disorders - RIGHT CEREBELLA HEMORRHAGE Denies: Hx Congestive Heart Failure, Hx Pacemaker/ICD Respiratory History: Reports: Other Respiratory Problems/Disorders - PHLEGM IN BACK OF THROAT WHILE LAYING FLAT Denies: Hx Asthma, Hx Chronic Obstructive Pulmonary Disease (COPD) GI History: Reports: Other GI Disorders - CONSTIPATION R/T PAIN MEDS History: Reports: Hx Renal Disease - left kidney removed, Other Problems/ Disorders - PROSTATE CANCER Musculoskeletal History: Denies: Other Musculoskeletal History Sensory History: Reports: Hx Cataracts - both eyes, Hx Contacts or Glasses - READING, Hx Glaucoma - BORERLINE FOLLOWED BY [facility] JOVITA PRIEST Denies: Hx Hearing Aid Opthamlomology History: Reports: Hx Cataracts - both eyes, Hx Contacts or Glasses - READING, Hx Glaucoma - BORERLINE FOLLOWED BY [facility] JOVITA PRIEST Neurological History: Reports: Hx Transient Ischemic Attacks (TIA), Other Neuro Impairments/Disorders - OCCASIONAL DIZZINESS, MAYBE ONCE A MONTH Denies: Hx Dementia, Hx Seizures Psychiatric History: Reports: Hx Anxiety - RECENT Denies: Hx Panic Disorder, Hx Substance Abuse - Cancer History Cancer Type, Location and Year: bladder, prostate Hx Chemotherapy: No Hx Radiation Therapy: Yes - Surgical History Surgery Procedure, Year, and Place: TONSILLECTOMY- A CHILD-TESTICLE DRAINED . RIGHT HERNIA REPAIR A CHILD. [id number]. 1998- THYROIDECTOMY @ [facility] BY DR VELAZQUEZ. 2000-ROTATOR CUFF, RIGHT SHOULDER-DR DAVIS -[facility] [place]. 2008-LEFT NEPHRECTOMY-[facility]. 2012-COLONOSCOPY Hx Anesthesia Reactions: No - Immunization History Date of Tetanus Vaccine: 2002 Date of Influenza Vaccine: 2012 Infectious Disease History: No Infectious Disease History: Denies: Hx Hepatitis, Hx Human Immunodeficiency Virus (HIV), Traveled Outside the [place] in Last 30 Days - Family History Known Family History: Positive: Cardiac Disease, Hypertension - Social History Alcohol Use: Occasionally Alcohol Amount: cocktail at HS Substance Use Type: Reports: None Hx Tobacco Use: No Smoking Status (MU): Former Smoker Type: Cigarettes Amount Used/How Often: 1 PPD FOR 20 YEARS Have You Smoked in the Last Year: No Review of Systems Negative: Fever Neurological: Other - dizziness, associated loss of balance Positive: Weakness All Other Systems Reviewed And Are Negative: Yes Physical Exam - Summary Physical Exam Summary: Appearance: The patient is well-nourished in no acute distress and in no acute pain. Skin: The skin is warm and dry and skin color reflects adequate perfusion. HEENT: The head is normocephalic and atraumatic. The pupils are equal and reactive. The conjunctivae are clear and without drainage. Nares are patent and without drainage. Mouth reveals moist mucous membranes and the throat is without erythema and exudate. The external ears are intact. The ear canals are patent and without drainage. The tympanic membranes are intact. Neck: The neck is supple with full range of motion and non-tender. There are no carotid bruits. There is no neck vein distension. Respiratory: Chest is non-tender. Lungs are clear to auscultation and breath sounds are symmetrical and equal. Cardiovascular: Heart is regular rate and rhythm. There is no murmur or rub auscultated. There is no peripheral edema and pulses are symmetrical and equal. Abdomen: The abdomen is soft and non-tender. There are normal bowel sounds heard in all four quadrants and there is no organomegaly palpated. Musculoskeletal: There is no back tenderness noted. Extremities are non-tender with full range of motion. There is good capillary refill. There is no peripheral edema or calf tenderness elicited. Neurological: Patient is alert and oriented to person, place and time. The patient has symmetrical motor strength in all four extremities. Cranial nerves are grossly intact. Deep tendon reflexes are symmetrical and equal in all four extremities. Psychiatric: The patient has an appropriate affect and does not exhibit any anxiety or depression. GCS: 15 Triage Information Reviewed: Yes Vital Signs On Initial Exam: Initial Vitals Temp Pulse Resp BP Pulse Ox 98.5 F 74 19 173/88 95 07/01/19 13:02 07/01/19 13:02 07/01/19 13:02 07/01/19 13:02 07/01/19 13:02 Vital Signs Reviewed: Yes Procedures - Sedation Patient Received Moderate/Deep Sedation with Procedure: No Diagnostics - Vital Signs Vital Signs Temp Pulse Resp BP Pulse Ox 07/01/19 13:02 98.5 F 74 19 173/88 95 - Laboratory Lab Results: Lab Results 07/01/19 07/01/19 07/01/19 Range/Units 13:14 13:14 13:14 WBC 6.3 (3.5-10.8) 10^3/uL RBC 4.21 (4.18-5.48) 10^6 /uL Hgb 13.8 L (14.0-18.0) g/dL Hct 40 L (42-52) % MCV 95 H (80-94) fL MCH 33 H (27-31) pg MCHC 35 (31-36) g/dL RDW 13 (10-15) % Plt Count 221 (150-450) 10^3/uL MPV 7.5 (7.4-10.4) fL Neut % (Auto) 65.8 % Lymph % (Auto) 20.0 % [place] % (Auto) 11.1 % Eos % (Auto) 2.2 % Baso % (Auto) 0.9 % Absolute Neuts (auto) 4.2 (1.5-7.7) 10^3/ul Absolute Lymphs (auto) 1.3 (1.0-4.8) 10^3/ul Absolute Monos (auto) 0.7 (0-0.8) 10^3/ul Absolute Eos (auto) 0.1 (0-0.6) 10^3/ul Absolute Basos (auto) 0.1 (0-0.2) 10^3/ul Absolute Nucleated RBC 0.0 10^3/ul Nucleated RBC % 0.0 Sodium 138 (135-145) mmol/L Potassium 4.4 (3.5-5.0) mmol/L Chloride 105 (101-111) mmol/L Carbon Dioxide 27 (22-32) mmol/L Anion Gap 6 (2-11) mmol/L BUN 35 H (6-24) mg/dL Creatinine 1.44 H (0.67-1.17) mg/dL Est GFR ( Amer) 56.1 (>60) Est GFR (Non-Af Amer) 46.4 (>60) BUN/Creatinine Ratio 24.3 H (8-20) Glucose 105 H (70-100) mg/dL Lactic Acid 1.0 (0.5-2.0) mmol/L Calcium 9.1 (8.6-10.3) mg/dL Magnesium 2.1 (1.9-2.7) mg/dL Total Bilirubin 0.40 (0.2-1.0) mg/dL AST 17 (13-39) U/L ALT 11 (7-52) U/L Alkaline Phosphatase 78 (34-104) U/L Troponin I 0.01 (<0.03) ng/mL Total Protein 6.3 L (6.4-8.9) g/dL Albumin 4.0 (3.2-5.2) g/dL Globulin 2.3 (2-4) g/dL Albumin/Globulin Ratio 1.7 (1-3) TSH Pending Result Diagrams: 07/01/19 13:14 07/01/19 13:14 Lab Statement: Any lab studies that have been ordered have been reviewed, and results considered in the medical decision making process. - CT Brain CT Interpretation Completed By: Radiologist Summary of CT Findings: No acute intracranial pathology. Stable right cerebellar cavernous angioma. ED Provider has reviewed this report. Dizzy Course/Dx - Course Course Of Treatment: It sounds to me like Mr. Nagel suffers from some orthostatic hypotension normally. His symptoms are worsened today and he was noted on laboratory analysis to be somewhat dehydrated with a BUN to creatinine ratio elevated. He was given IV fluids and stay did improve significantly. Initial EKG and troponin were unremarkable but he did have quite a bit of ectopy here in the department. I don't think that this is significant however I am awaiting a repeat troponin at this time. - Diagnoses Provider Diagnoses: Dizziness Discharge ED - Sign-Out/Discharge Documenting (check all that apply): Sign-Out Patient Signing out patient TO: Toby Epps - At shift change 1899 pending 2nd Troponin - Discharge Plan Condition: Stable Referrals: Adele Gr MD [Primary Care Provider] - - Billing Disposition and Condition Condition: STABLE - Attestation Statements Document Initiated by Bobo: Yes Documenting Scribe: Meet Saldaña Provider For Whom Rosalindaibe is Documenting (Include Credential): Toby Choi MD Scribe Attestation: I, Meet Saldaña, scribed for Toby Choi MD on 07/01/19 at 1913. Scribe Documentation Reviewed: Yes Provider Attestation: The documentation as recorded by the Meet cannon accurately reflects the service I personally performed and the decisions made by me, Toby Choi MD Status of Scribe Document: Viewed
--- NOTE | 2019-07-01 19:57 | ED ---
Progress - Progress Note Progress Note: Patient is received as a sign out from Dr. Choi at 1900 07/01/19 shift change pending results of second troponin. Course/Dx - Course Course Of Treatment: Patient is received as a sign out from Dr. Choi at 1900 07/01/19 shift change pending results of second troponin. Second troponin was negative. Patient is discharged to home with PCP follow up. - Diagnoses Provider Diagnoses: Dizziness Discharge ED - Sign-Out/Discharge Documenting (check all that apply): Patient Departure - discharge , Receiving Sign-Out Receiving patient FROM: Gonzalez Choi - Discharge Plan Condition: Stable Disposition: HOME Patient Education Materials: Dizziness (ED) Referrals: Adele Gr MD [Primary Care Provider] - If Needed (if not feeling well) - Billing Disposition and Condition Condition: STABLE Disposition: Home - Attestation Statements Document Initiated by Bobo: Yes Documenting Scribe: TOR CHARLTON Provider For Whom Bobo is Documenting (Include Credential): GONZALEZ ZELAYA MD Scribe Attestation: TOR Gonzalez, scribed for GONZALEZ ZELAYA MD on 07/05/19 at 1833. Scribe Documentation Reviewed: Yes Provider Attestation: The documentation as recorded by the TOR cannon accurately reflects the service I personally performed and the decisions made by me, GONZALEZ ZELAYA MD Status of Scribe Document: Viewed
[2019-07-01 20:03] LABS: Urine Appearance Clear; Urine Bilirubin Negative (Negative); Urine Blood Negative (Negative); Urine Color Straw; Urine Glucose Negative (Negative); Urine Ketones Negative (Negative); Urine Nitrite Negative (Negative); Urine Protein Negative (Negative); Urine Specific Gravity 1.008 (1.010-1.030); Urine Urobilinogen Negative (Negative)
[2019-07-01 21:59] VITALS: BP 172/75
== END 2019-07-01 21:40 | disposition home or self-care (01) ==
LOC: ED 13:00
DX: R42 Dizziness and giddiness (principal); E86.0 Dehydration; D18.02 Hemangioma of intracranial structures; R26.81 Unsteadiness on feet; E03.9 Hypothyroidism, unspecified; I10 Essential (primary) hypertension; Z87.891 Personal history of nicotine dependence
CPT/HCPCS: 36415; 70450; 80053; 81003; 83605; 83735; 84443; 84484; 85025; 93005; 96360; 96361; 99283